=== PATIENT | female | born 1985 | race Caucasian/White ===

== ENCOUNTER 2017-05-09 13:46 | Inpatient (IN) | payer SELFPAY ==
[~2017-05-09] VITALS: Ht 177.8 cm; Wt 111.8 kg
[~2017-05-09 13:46] MED LIST: MOTRIN600 MG PO; MOTRIN800 MG PO; NOHOMEMEDS; NORCO 5/3251 TABLET PO; PEN-VEE K,VEET500 MG PO; ULTRACET1 TABLET PO
[2017-05-09] MEDS ORDERED: CIPRO500 MG PO (15:42)
[2017-05-09] MEDS ORDERED: PERCOCET 5/31 TABLET PO (15:42)
[2017-05-09] MEDS ORDERED: BIRTH CONTROL PO (15:48)
[2017-05-09 16:06] LABS: INTER. NORMALIZED RATIO 1.2
[2017-05-09 16:09] LABS: PTT 25.5 SEC (25-37)
[2017-05-09 16:41] LABS: HEMATOCRIT 41.5 % (36.0-46.0); MCH 28.8 PG (29.0-34.0); MCV 87.4 FL (83-99); MEAN PLAT.VOLUME 9.4 uM^3 (9.5-12.4); PLATELET COUNT 206 K/uL (156-360); RBC DIS.WIDTH-CV 12.2 % (11.8-14.6); RBC DIS.WIDTH-SD 39.3 % (39-53); RED BLOOD COUNT 4.75 M/uL (3.80-5.20); WHITE BLOOD COUNT 9.7 K/uL (4.1-10.2)
[2017-05-09 16:50] LABS: CHLORIDE 101 mEq/L (99-109); POTASSIUM 4.2 mEq/L (3.7-5.4); SODIUM 138 mEq/L (136-147)
[2017-05-09 16:52] LABS: GLUCOSE 109 mg/dL (70-99)
[2017-05-09 16:54] LABS: ANION GAP 13 MEQ/L (2-14); TOTAL BILIRUBIN 0.6 mg/dL (0.0-1.0)
[2017-05-09 16:56] LABS: ALKALINE PHOSPHATASE 81 IU/L (3-129); GFR ESTIMATE (CALCULATED) > 59 mL/min/
[2017-05-09 16:57] LABS: UREA NITROGEN (BUN) 8 mg/dL (9-23)
[2017-05-09 17:24] LABS: FACTOR Xa INHIBITION (LMWH) 0.02 IU/mL
[2017-05-09 17:47] LABS: FIBRINOGEN 647 mg/dL (150-450)
[2017-05-09 18:34] VITALS: BP 118/66
[2017-05-09 19:43] VITALS: BP 145/74
[2017-05-09 23:23] LABS: INTER. NORMALIZED RATIO 1.2; PROTHROMBIN TIME 12.7 SEC (10.2-12.9)
[2017-05-09 23:26] LABS: PTT 31.7 SEC (25-37)
[2017-05-10] VITALS (7 sets, daily range): BP systolic 119–138; BP diastolic 65–84
[2017-05-10 13:07] LABS: Protein S, Free 134 % normal (50-147)
[2017-05-10 21:55] LABS: DRVVT Mixing Study Interp Not Indicated (()); dRVVT Screen 31 sec (<=45)
[2017-05-11 03:58] VITALS: BP 130/82
[2017-05-11 07:56] VITALS: BP 116/87
[2017-05-11 08:46] LABS: HEMATOCRIT 41.2 % (36.0-46.0); MCH 28.4 PG (29.0-34.0); MCHC 32.5 G/DL (30.0-36.0); MCV 87.3 FL (83-99); MEAN PLAT.VOLUME 9.2 uM^3 (9.5-12.4); PLATELET COUNT 206 K/uL (156-360); RBC DIS.WIDTH-CV 11.9 % (11.8-14.6); RBC DIS.WIDTH-SD 38.5 % (39-53); RED BLOOD COUNT 4.72 M/uL (3.80-5.20); WHITE BLOOD COUNT 9.1 K/uL (4.1-10.2)
[2017-05-11 11:20] VITALS: BP 120/78
[2017-05-11 15:58] VITALS: BP 119/69
[2017-05-11 19:38] VITALS: BP 127/81
[2017-05-11 23:53] VITALS: BP 103/68
[2017-05-12 03:58] VITALS: BP 118/74
[2017-05-12 07:25] VITALS: BP 124/71
[2017-05-12 11:20] VITALS: BP 107/67
[2017-05-12 15:19] VITALS: BP 99/64
[2017-05-12 18:14] LABS: ADD MIUA? YES; BILIRUBIN NEGATIVE; BLOOD SMALL; COLOR YELLOW ((YELLOW)); GLUCOSE (STRIP) NEGATIVE; KETONES NEGATIVE; LEUKOCYTES TRACE; NITRITE NEGATIVE; PROTEIN (STRIP) NEGATIVE
[2017-05-12 18:32] LABS: BACTERIA RARE /HPF; EPITHELIAL CELLS 1+ /HPF; MUCUS 1+ /LPF; UCUL ADDED? YES
[2017-05-12 23:36] VITALS: BP 116/65
[2017-05-13 07:28] VITALS: BP 117/67
[2017-05-13] MEDS ORDERED: PERCOCET 5/31 TABLET PO (11:59)
[2017-05-13] MEDS ORDERED: ELIQUIS5 MG PO (12:05)
[2017-05-13] MEDS ORDERED: COLACE100 MG PO (12:22)
[2017-05-14 10:05] LABS: JO-1 ANTIBODY 64 U/mL (0-99); SM (SMITH) ANTIBODY 24 U/mL (0-99); SS-A (SJOGREN'S) ANTIBODY 105 U/mL (0-99); SS-B (SJOGREN'S) ANTIBODY 17 U/mL (0-99)
[2017-05-14 19:05] LABS: DRVVT Mixing Study Interp Not Indicated (()); PROTEIN C FUNCTIONAL ACTIVITY+ 102 % (70-180); PTT-LA 39 sec (<=40); Thrombosis Consult Level Limited (()); dRVVT Screen 34 sec (<=45)
[2017-05-14 22:35] LABS: ANTITHROMBIN III ACTIVITY+ 85 % activi (80-120)
== END 2017-05-13 14:03 | disposition home or self-care (01) | DRG 176 ==
LOC: EME 13:46 → RAD 13:46 → EME 13:46 → EDSTATUS 14:00 → RAD 14:00 → 5SOUTH 15:56 → EDOF 15:56 → ENRESERV 16:00 → 5SOUTH 18:18
PROVIDERS: Emergency Medicine; Hospitalist; Internal Medicine; Student in an Organized Health Care Education/Training Program
DX: I26.99 Other pulmonary embolism without acute cor pulmonale (principal); N39.0 Urinary tract infection, site not specified; R79.1 Abnormal coagulation profile; B96.20 Unspecified Escherichia coli [E. coli] as the cause of diseases classified elsewhere; R00.0 Tachycardia, unspecified; Z80.3 Family history of malignant neoplasm of breast
CPT/HCPCS: 36415; 71275; 80053; 81003; 81015; 81240 90; 81241 90; 82150; 83090 90; 83690; 85025; 85027; 85240 90; 85300 90; 85303 90; 85305 90; 85306 90; 85307 90; 85379; 85384; 85520; 85610; 85613 90; 85730; 85730 90; 86038; 86146 90; 86147 90; 87086; J2270

== ENCOUNTER → 2017-06-04 | Outpatient (CLI) | payer SELFPAY ==
[~2017-06-04] MED LIST changes: +BIRTH CONTROL PO; +CIPRO500 MG PO; +COLACE100 MG PO; +ELIQUIS5 MG PO; +PERCOCET 5/31 TABLET PO
== END | disposition home or self-care (01) ==
LOC: RAD 12:35
DX: I26.99 Other pulmonary embolism without acute cor pulmonale (principal); M70.61 Trochanteric bursitis, right hip; M79.661 Pain in right lower leg; M79.662 Pain in left lower leg
CPT/HCPCS: 93970

== ENCOUNTER → 2017-07-31 | Outpatient (CLI) | payer SELFPAY | END | disposition home or self-care (01) | LOC: RAD 08:14 | DX: I26.99 Other pulmonary embolism without acute cor pulmonale (principal) | CPT/HCPCS: 71275 ==

== ENCOUNTER 2017-08-21 23:14 | Emergency (ER) | payer SELFPAY ==
[~2017-08-21] VITALS: Ht 180.3 cm; Wt 108.6 kg
[2017-08-21 23:56] LABS: HEMATOCRIT 47.3 % (36.0-46.0); HEMOGLOBIN 15.5 G/DL (11.9-15.5); MCH 28.1 PG (29.0-34.0); MCHC 32.8 G/DL (30.0-36.0); MCV 85.8 FL (83-99); PLATELET COUNT 225 K/uL (156-360); RBC DIS.WIDTH-CV 12.1 % (11.8-14.6); RBC DIS.WIDTH-SD 38.3 % (39-53); RED BLOOD COUNT 5.51 M/uL (3.80-5.20); WHITE BLOOD COUNT 10.6 K/uL (4.1-10.2)
[2017-08-22 00:05] LABS: ALBUMIN 4.1 g/dL (3.2-4.8); CHLORIDE 108 mEq/L (99-109); POTASSIUM 4.1 mEq/L (3.7-5.4); SODIUM 141 mEq/L (136-147)
[2017-08-22 00:08] LABS: GLUCOSE 133 mg/dL (70-99); TOTAL PROTEIN 7.7 g/dL (6.4-8.3)
[2017-08-22 00:10] LABS: TOTAL BILIRUBIN 0.7 mg/dL (0.0-1.0)
[2017-08-22] MEDS ORDERED: DEPO-PROVERA (00:10)
[2017-08-22 00:11] LABS: ALKALINE PHOSPHATASE 107 IU/L (3-129); GFR ESTIMATE (CALCULATED) > 59 mL/min/
[2017-08-22 00:12] LABS: UREA NITROGEN (BUN) 14 mg/dL (9-23)
[2017-08-22 00:13] LABS: AST (GOT) 12 IU/L (2-34)
[2017-08-22 00:14] LABS: ALT (GPT) 14 IU/L (3-49)
[2017-08-22 00:22] LABS: QUANTITATIVE HCG < 4.0 MIU/ML
[2017-08-22 01:18] LABS: APPEARANCE SL.HAZY ((CLEAR)); BILIRUBIN NEGATIVE; BLOOD LARGE; COLOR YELLOW ((YELLOW)); GLUCOSE (STRIP) NEGATIVE; KETONES NEGATIVE; LEUKOCYTES NEGATIVE; NITRITE NEGATIVE; PROTEIN (STRIP) 30; SPECIFIC GRAVITY 1.033 (1.000-1.030); UROBILINOGEN 0.2 MG/DL (0.2-1.0)
[2017-08-22 01:48] LABS: BACTERIA 2+ /HPF; CALCIUM OXALATE CRYSTALS 2+ /HPF; EPITHELIAL CELLS 1+ /HPF; HYALINE CASTS 0-5 /LPF; MUCUS 3+ /LPF; RED BLOOD CELLS TNTC /HPF (0-5); UCUL ADDED? YES; WHITE BLOOD CELLS 0-5 /HPF (0-5)
[2017-08-22] MEDS ORDERED: REGLAN10 MG PO (02:40)
[2017-08-22] MEDS ORDERED: ZOFRAN ODT4 MG PO (02:40)
[2017-08-22] MEDS ORDERED: COMPAZINE25 M1 PR (02:40)
[2017-08-22 03:08] VITALS: BP 100/55
== END 2017-08-22 03:10 | disposition home or self-care (01) ==
LOC: EME 23:14
DX: K52.9 Noninfective gastroenteritis and colitis, unspecified (principal); R07.89 Other chest pain; Z86.711 Personal history of pulmonary embolism; Z79.01 Long term (current) use of anticoagulants
CPT/HCPCS: 80053; 81003; 84702; 85027; 87077; 87086; 87186; 93005; 99281; 99285; J2405; J2765; J7030

== ENCOUNTER 2018-03-15 18:01 | Emergency (ER) | payer BC ==
[~2018-03-15] VITALS: Ht 180.3 cm; Wt 111.1 kg
[~2018-03-15 18:01] MED LIST changes: +COMPAZINE25 M1 PR; +DEPO-PROVERA; +REGLAN10 MG PO; +ZOFRAN ODT4 MG PO
[2018-03-15 20:46] LABS: APPEARANCE CLEAR ((CLEAR)); BILIRUBIN NEGATIVE; BLOOD LARGE; COLOR YELLOW ((YELLOW)); GLUCOSE (STRIP) NEGATIVE; KETONES NEGATIVE; LEUKOCYTES TRACE; NITRITE NEGATIVE; PROTEIN (STRIP) 30; SPECIFIC GRAVITY 1.029 (1.000-1.030); UROBILINOGEN 0.2 MG/DL (0.2-1.0)
[2018-03-15 20:53] LABS: BACTERIA RARE /HPF; CALCIUM OXALATE CRYSTALS 1+ /HPF; EPITHELIAL CELLS 1+ /HPF; MUCUS TRACE /LPF; RED BLOOD CELLS 20-30 /HPF (0-5)
[2018-03-15 21:14] LABS: HEMATOCRIT 39.5 % (36.0-46.0); HEMOGLOBIN 13.3 G/DL (11.9-15.5); MCH 28.4 PG (29.0-34.0); MCHC 33.7 G/DL (30.0-36.0); MCV 84.4 FL (83-99); PLATELET COUNT 209 K/uL (156-360); RBC DIS.WIDTH-CV 12.3 % (11.8-14.6); RBC DIS.WIDTH-SD 37.3 % (39-53); RED BLOOD COUNT 4.68 M/uL (3.80-5.20); WHITE BLOOD COUNT 9.5 K/uL (4.1-10.2)
[2018-03-15 21:21] LABS: D-DIMER ELISA < 150.00 ng/mLDDU (<230)
[2018-03-15 21:28] LABS: CHLORIDE 108 mEq/L (99-109); POTASSIUM 3.8 mEq/L (3.7-5.4); SODIUM 143 mEq/L (136-147)
[2018-03-15 21:29] LABS: GLUCOSE 85 mg/dL (70-99)
[2018-03-15 21:33] LABS: CREATININE 0.9 mg/dL (0.6-1.3); GFR ESTIMATE (CALCULATED) > 59 mL/min/
[2018-03-15 21:34] LABS: UREA NITROGEN (BUN) 10 mg/dL (9-23)
[2018-03-15 21:42] LABS: QUANTITATIVE HCG < 4.0 MIU/ML
[2018-03-15] MEDS ORDERED: KEFLEX500 MG PO (21:49)
[2018-03-15 22:07] VITALS: BP 134/86
== END 2018-03-15 22:08 | disposition home or self-care (01) ==
LOC: EME 18:01
PROVIDERS: Physician Assistant
DX: N39.0 Urinary tract infection, site not specified (principal); Z86.711 Personal history of pulmonary embolism
CPT/HCPCS: 80048; 81003; 81025; 84702; 85027; 85379; 93005; 99281; 99284

== ENCOUNTER 2018-03-18 19:51 | Emergency (ER) | payer BC ==
[~2018-03-18] VITALS: Ht 180.3 cm; Wt 112.4 kg
[~2018-03-18 19:51] MED LIST changes: +KEFLEX500 MG PO
[2018-03-18 21:23] LABS: HEMATOCRIT 41.7 % (36.0-46.0); HEMOGLOBIN 13.8 G/DL (11.9-15.5); MCHC 33.1 G/DL (30.0-36.0); MCV 84.8 FL (83-99); PLATELET COUNT 218 K/uL (156-360); RBC DIS.WIDTH-CV 12.4 % (11.8-14.6); RBC DIS.WIDTH-SD 38.3 % (39-53); RED BLOOD COUNT 4.92 M/uL (3.80-5.20); WHITE BLOOD COUNT 11.6 K/uL (4.1-10.2)
[2018-03-18 21:33] LABS: APPEARANCE SL.HAZY ((CLEAR)); BILIRUBIN NEGATIVE; BLOOD LARGE; COLOR YELLOW ((YELLOW)); GLUCOSE (STRIP) NEGATIVE; KETONES 5; LEUKOCYTES NEGATIVE; NITRITE NEGATIVE; PROTEIN (STRIP) 30; SPECIFIC GRAVITY 1.023 (1.000-1.030); UROBILINOGEN 0.2 MG/DL (0.2-1.0)
[2018-03-18 21:35] LABS: ALBUMIN 4.4 g/dL (3.2-4.8); CHLORIDE 109 mEq/L (99-109); POTASSIUM 4.3 mEq/L (3.7-5.4); SODIUM 144 mEq/L (136-147)
[2018-03-18 21:38] LABS: GLUCOSE 99 mg/dL (70-99); TOTAL PROTEIN 7.6 g/dL (6.4-8.3)
[2018-03-18 21:40] LABS: TOTAL BILIRUBIN 0.4 mg/dL (0.0-1.0)
[2018-03-18 21:41] LABS: ALKALINE PHOSPHATASE 110 IU/L (3-129); CREATININE 0.9 mg/dL (0.6-1.3); GFR ESTIMATE (CALCULATED) > 59 mL/min/
[2018-03-18 21:42] LABS: UREA NITROGEN (BUN) 10 mg/dL (9-23)
[2018-03-18 21:43] LABS: AST (GOT) 15 IU/L (2-34)
[2018-03-18 21:44] LABS: ALT (GPT) 14 IU/L (3-49)
[2018-03-18 21:50] LABS: QUANTITATIVE HCG < 4.0 MIU/ML
[2018-03-18 22:09] LABS: RED BLOOD CELLS TNTC /HPF (0-5)
[2018-03-18 22:10] LABS: BACTERIA 1+ /HPF; EPITHELIAL CELLS RARE /HPF; MUCUS RARE /LPF; UCUL ADDED? YES; WHITE BLOOD CELLS 0-5 /HPF (0-5)
[2018-03-18 22:11] LABS: CALCIUM OXALATE CRYSTALS RARE /HPF
[2018-03-19] MEDS ORDERED: PERCOCET 5/31 TABLET PO (00:03)
[2018-03-19] MEDS ORDERED: ZOFRAN ODT4 MG PO (00:03)
[2018-03-19 00:13] VITALS: BP 116/78
== END 2018-03-19 00:15 | disposition home or self-care (01) ==
LOC: EME 19:51
PROVIDERS: Physician Assistant
DX: N20.1 Calculus of ureter (principal); Z87.442 Personal history of urinary calculi; Z87.440 Personal history of urinary (tract) infections; Z86.711 Personal history of pulmonary embolism; Z79.01 Long term (current) use of anticoagulants
CPT/HCPCS: 74176; 80053; 81003; 84702; 85027; 87086; 99281; 99284